=== PATIENT | male | born 1955 | race American Indian/Alaskan Native ===

== ENCOUNTER 2019-01-05 16:12 | Emergency (ER) | payer MEDICAID, MEDICARE ==
[2019-01-05 16:12] VITALS: BMI 21.7
--- NOTE | 2019-01-05 16:29 | ED PDOC ---
Arrival/HPI - General Time Seen by Provider: 01/05/19 16:13 Historian: Patient - History of Present Illness Narrative History of Present Illness (Text): 01/05/19 16:16 63 y/o male, pmh including htn/hepatitis, nkda, bib officer for BP check. Pt. stated that he is arrested, stated that he has history of high blood pressure, wants to have blood pressure check. Pt. stated that he has no headache/dizziness, no chest pain or palpitation, no shortness of breath, no night sweat, no dizziness, no numbness or tingling, no other medical or psychological complaints. Past Medical History - Provider Review Nursing Documentation Reviewed: Yes - Tetanus Immunization Tetanus Immunization: Unknown - Hematological/Oncological Hx Hepatitis C: Yes - Psychiatric Hx Depression: No Hx Emotional Abuse: No Hx Physical Abuse: No Hx Substance Use: No - Suicidal Assessment Feels Threatened In Home Enviroment: No Family/Social History - Physician Review Nursing Documentation Reviewed: Yes Family/Social History: Unknown Family HX Hx Alcohol Use: No Hx Substance Use: No Hx Substance Use Treatment: No Allergies/Home Meds Allergies/Adverse Reactions: Allergies No Known Allergies Allergy (Verified 04/10/12 16:24) Home Medications: Home Meds Medication Instructions Recorded Confirmed Lisinopril 20 mg PO DAILY 04/10/12 04/10/12 Boceprevir [Victrelis] 800 mg PO TID 12/01/12 12/01/12 Epoetin Scott [Procrit] 0 unit IJ 12/01/12 12/01/12 Peginterferon Scott-2A [Pegasys] 180 mcg SC 12/01/12 12/01/12 Ribavirin 200 mg PO 12/01/12 12/01/12 Review of Systems - Review of Systems Constitutional: absent: Fatigue, Fevers Eyes: absent: Vision Changes ENT: absent: Hearing Changes Respiratory: absent: SOB, Cough Cardiovascular: absent: Chest Pain, Palpitations Gastrointestinal: absent: Abdominal Pain, Nausea, Vomiting Musculoskeletal: absent: Arthralgias, Back Pain Skin: absent: Rash, Pruritis Neurological: absent: Headache, Dizziness Psychiatric: absent: Anxiety, Depression, Suicidal Ideation Physical Exam - Systems Exam Head: Present: Atraumatic, Normocephalic Pupils: Present: PERRL Extroacular Muscles: Present: EOMI Conjunctiva: Present: Normal Mouth: Present: Moist Mucous Membranes Neck: Present: Normal Range of Motion Respiratory/Chest: Present: Clear to Auscultation, Good Air Exchange. No: Respiratory Distress, Accessory Muscle Use, Wheezes, Decreased Breath Sounds, Rales, Retracting, Rhonchi, Tachypneic, Tender to Palpation Cardiovascular: Present: Regular Rate and Rhythm, Normal S1, S2. No: Murmurs Abdomen: No: Tenderness, Distention, Peritoneal Signs, Rebound, Guarding Back: Present: Normal Inspection. No: CVA Tenderness, Midline Tenderness, Paraspinal Tenderness, Pain with Leg Raise, Decubitus Ulcer Upper Extremity: Present: Normal Inspection, Normal ROM, NORMAL PULSES, Neurovascularly Intact. No: Cyanosis, Edema, Deformity Lower Extremity: Present: Normal Inspection, NORMAL PULSES, Normal ROM, Capillary Refill < 2 s. No: Edema, Deformity Neurological: Present: GCS=15, CN II-XII Intact, Speech Normal, Motor Func Grossly Intact, Normal Cerebellar Funct, Gait Normal, Memory Normal Skin: Present: Warm, Dry, Normal Color. No: Rashes Psychiatric: Present: Alert, Oriented x 3, Normal Insight, Normal Concentration Medical Decision Making ED Course and Treatment: 01/05/19 16:34 -Pt. feels well, asymptomatic, no medical or psychological complaints, no homocidal or suicidal ideation, no auditory or visual hallucination. 01/05/19 18:04 -Food given, asymptomatic, will discharge home. -Pt. is medically clear and stable at this time for incarceration. -Discharge with education on follow up with your own pmd and continue your medication, see your own pmd within 2 days, return to the ER for any new or worsening signs or symptoms. - PA / TECHNOLOGY COORDINATOR / Resident Statement /DO has reviewed & agrees with the documentation as recorded. Disposition/Present on Arrival - Present on Arrival Any Indicators Present on Arrival: No History of DVT/PE: No History of Uncontrolled Diabetes: No Urinary Catheter: No History of Decub. Ulcer: No History Surgical Site Infection Following: None - Disposition Have Diagnosis and Disposition been Completed?: Yes Diagnosis: HTN (hypertension) Disposition: HOME/ ROUTINE Disposition Time: 18:05 Patient Plan: Discharge Condition: GOOD Additional Instructions: -Discharge with education on follow up with your own pmd and continue your medication, see your own pmd within 2 days, return to the ER for any new or worsening signs or symptoms.
[2019-01-05 16:40] VITALS: RESP 18; TEMP 98.2
[2019-01-05 18:07] VITALS: BP 134/64; PULSE 66; O2SAT 98
== END 2019-01-05 18:25 | disposition home or self-care (01) ==
LOC: ED 16:12
DX: I10 Essential (primary) hypertension (principal)